=== PATIENT | female | born 1990 | race Caucasian/White ===

== ENCOUNTER → 2017-03-05 | Outpatient (REF) | LOC: WSOH 17:15 | DX: Z02.89 Encounter for other administrative examinations (principal) ==

== ENCOUNTER → 2021-05-09 | Outpatient (CLI) | payer OTHER | LOC: MC.RAD 07:45 | DX: Z12.31 Encounter for screening mammogram for malignant neoplasm of breast (principal); Z91.89 Other specified personal risk factors, not elsewhere classified ==

== ENCOUNTER → 2022-10-02 | Outpatient (CLI) | payer BC | LOC: MC.RAD 14:30 | DX: Z12.31 Encounter for screening mammogram for malignant neoplasm of breast (principal); Z91.89 Other specified personal risk factors, not elsewhere classified ==